=== PATIENT | male | born 1995 | race Hispanic/Latino ===

== ENCOUNTER 2018-04-19 09:00 | Emergency (ER) | payer BC ==
[2018-04-19] MEDS ORDERED: KETOROLAC TROMETHAMINE 30MG/ML ONE (09:30)
[2018-04-19] MEDS ORDERED: DEXAMETHASONE SOD PHOSPHATE 10MG/ML 1ML VIAL ONE (09:30)
== END 2018-04-19 09:58 | disposition home or self-care (01) ==
LOC: EDH 09:00
DX: M25.551 Pain in right hip (principal); M25.552 Pain in left hip; Z87.798 Personal history of other (corrected) congenital malformations
CPT/HCPCS: 96372 ×2; 99284; J1100; J1885